=== PATIENT | male | born 1980 | race Caucasian/White ===

== ENCOUNTER 2018-05-12 21:57 | Emergency (ER) | payer OTHER ==
[2018-05-12] MEDS ORDERED: NA CHLORIDE 0.9% 1,000 ML ONE (22:45)
[2018-05-12] MEDS ORDERED: ONDANSETRON 4 MG/2 ML VIAL ONE (22:45)
[2018-05-12 23:04] LABS: Absolute Lymphocytes (CBC) 0.3 K/uL (0.7-4.9); Absolute Monocytes 0.8 K/uL (0.1-1.3); Absolute Neutrophil 11.4 K/uL (1.8-8.0); Basophils % 0.2 % (0-1.3); Eosinophils % 0.3 % (0-4.4); Hematocrit 53.3 % (39.6-49.0); Lymphocytes % 2.2 % (15.3-44.8); MPV 11.8 fL (7.6-11.3); Monocytes % 6.2 % (3.3-12.3); RBC Red Blood Cell Count 6.24 M/uL (4.33-5.43)
[2018-05-12 23:12] LABS: Albumin 5.3 g/dL (3.4-5.0); Bilirubin Direct 0.2 mg/dL (0-0.2); Bilirubin Total 0.9 mg/dL (0.2-1.0); Potassium 4.2 mmol/L (3.5-5.1); Protein, Total 9.2 g/dL (6.4-8.2)
[2018-05-12] MEDS ORDERED: MORPHINE 4 MG/ML SYR ONE (23:23)
[2018-05-12 23:33] LABS: Platelet Estimate ADEQ; Urine White Blood Cell Casts OK
[2018-05-12 23:34] LABS: Blood Morphology Comment NOT SEEN (NOT SEEN)
[2018-05-13] MEDS ORDERED: ONDANSETRON 4 MG/2 ML VIAL ONE (01:35)
[2018-05-13] MEDS ORDERED: NA CHLORIDE 0.9% 1,000 ML ONE ×2 (03:12→04:30)
[2018-05-13 05:56] LABS: Potassium 4.2 mmol/L (3.5-5.1)
--- NOTE | 2018-05-13 06:52 | EDPHYS ---
Physician Documentation [facility] Name: Chad Howe Age: 37 yrs Sex: Male : 1980 Arrival Date: 05/12/2018 Time: 22:02 Bed 16 Private MD: ED Physician Alek Vu HPI: 05/13 00:50 This 37 yrs old Male presents to ER via Ambulatory with complaints of tw4 Vomiting/Diarrhea, Pain all over. 00:50 The patient presents to the emergency department with nausea, vomiting. The patient tw4 presents to the emergency department with diarrhea, 10 times since the onset of symptoms. Onset: The symptoms/episode began/occurred today. Possible causes: unknown. The symptoms are aggravated by nothing. The symptoms are alleviated by nothing. Associated signs and symptoms: The patient has no apparent associated signs or symptoms. Severity of symptoms: At their worst the symptoms were mild in the emergency department the symptoms are unchanged. The patient has not experienced similar symptoms in the past. Historical: - Allergies: 05/12 22:38 No Known Allergies; bb - Home Meds: 22:38 Prilosec Oral [Active]; bb - PMHx: 22:38 GERD; bb - PSHx: 22:38 None; bb - Immunization history:: Adult Immunizations up to date. - Social history:: Smoking status: Patient/guardian denies using tobacco, Patient/guardian denies using alcohol, street drugs. - Ebola Screening: : No symptoms or risks identified at this time. ROS: 05/13 00:50 Constitutional: Negative for fever, chills, and weight loss, Eyes: Negative for injury, tw4 pain, redness, and discharge, Cardiovascular: Negative for chest pain, palpitations, and edema, Respiratory: Negative for shortness of breath, cough, wheezing, and pleuritic chest pain. MS/Extremity: Negative for injury and deformity, Skin: Negative for injury, rash, and discoloration. Abdomen/GI: Positive for nausea and vomiting, nausea, vomiting, and diarrhea, nausea, vomiting, diarrhea, Negative for abdominal pain, abdominal cramps, abdominal distension, black/tarry stool. Exam: 00:50 Constitutional: This is a well developed, well nourished patient who is awake, alert, tw4 and in no acute distress. Head/Face: Normocephalic, atraumatic. Chest/axilla: Normal chest wall appearance and motion. Nontender with no deformity. No lesions are appreciated. Cardiovascular: Regular rate and rhythm with a normal S1 and S2. No gallops, murmurs, or rubs. Normal PMI, no JVD. No pulse deficits. Respiratory: Lungs have equal breath sounds bilaterally, clear to auscultation and percussion. No rales, rhonchi or wheezes noted. No increased work of breathing, no retractions or nasal flaring. Back: No spinal tenderness. No costovertebral tenderness. Full range of motion. MS/ Extremity: Pulses equal, no cyanosis. Neurovascular intact. Full, normal range of motion. Neuro: Awake and alert, GCS 15, oriented to person, place, time, and situation. Cranial nerves II-XII grossly intact. Motor strength 5/5 in all extremities. Sensory grossly intact. Cerebellar exam normal. Normal gait. 00:50 Abdomen/GI: Inspection: abdomen appears normal, Bowel sounds: diminished, Palpation: moderate abdominal tenderness, in the right lower quadrant. Vital Signs: 05/12 22:38 BP 118 / 74; Pulse 80; Resp 18 S; Temp 97.6(A); Pulse Ox 98% on R/A; Weight 72.57 kg bb (R); Height 5 ft. 10 in. (177.80 cm) (R); Pain 9/10; 23:30 BP 116 / 86; Pulse 87; Resp 16; Pulse Ox 96% on R/A; jb4 05/13 00:30 BP 117 / 78; Pulse 92; Resp 16; Pulse Ox 94% on R/A; jb4 01:30 BP 116 / 78; Pulse 90; Resp 16; Pulse Ox 97% on R/A; jb4 02:30 BP 120 / 83; Pulse 84; Resp 16; Pulse Ox 94% on R/A; jb4 03:30 BP 111 / 79; Pulse 91; Resp 16; Pulse Ox 95% on R/A; jb4 04:30 BP 110 / 70; Pulse 84; Resp 16; Pulse Ox 96% on R/A; jb4 05:30 BP 112 / 73; Pulse 88; Resp 16; Pulse Ox 96% on R/A; jb4 06:00 BP 102 / 70; Pulse 86; Resp 16; Pulse Ox 94% on R/A; 4 07:00 BP 117 / 74; Pulse 83; Resp 16; Pulse Ox 97% on R/A; [facility] 05/12 22:38 Body Mass Index 22.96 (72.57 kg, 177.80 cm) bb MDM: 05/12 22:20 Patient medically screened. [facility] 05/12 22:41 Order name: Basic Metabolic Panel; Complete Time: 02:03 tw4 05/13 02:03 Interpretation: Normal except: CRE 1.54; GFR 51; GLUC 176. tw4 05/12 22:41 Order name: CBC with Diff; Complete Time: 02:03 4 05/13 02:03 Interpretation: Normal except: WBC 12.6; RBC 6.24; HCT 53.3; MPV 11.8. tw05/12 22:41 Order name: Creatinine for Radiology; Complete Time: 02:03 [facility] 05/13 02:03 Interpretation: Normal except: CRE 1.52; GFR 51. [facility] 05/12 22:41 Order name: Hepatic Function; Complete Time: 02:04 [facility] 05/13 02:04 Interpretation: Normal except: TP 9.2; ALB 5.3; GLOB 3.9. tw 05/12 22:41 Order name: Lipase [facility] 05/12 23:33 Order name: CBC Smear Scan; Complete Time: 02:04 [facility] 05/12 22:41 Order name: IV Saline Lock; Complete Time: 23:46 4 05/13 05:17 Order name: BMP [facility] 05/12 22:41 Order name: Labs collected and sent; Complete Time: 23:46 4 Administered Medications: 22:30 Drug: Zofran 4 mg Route: IVP; Site: left antecubital; jb4 23:00 Follow up: Response: No adverse reaction; Pain is decreased; Nausea is decreased jb4 22:30 Drug: NS 0.9% 1000 ml Route: IV; Rate: 1 bolus; Site: left antecubital; jb4 23:30 Follow up: Response: No adverse reaction; IV Status: Completed infusion; IV Intake: jb4 1000ml 05/13 01:32 Drug: Zofran 4 mg Route: IVP; Site: left antecubital; jb4 03:06 Follow up: Response: No adverse reaction; Pain is decreased; Nausea is decreased jb4 01:37 Not Given (Patient Refused): morphine 4 mg IVP once jb4 03:08 Drug: NS 0.9% 1000 ml Route: IV; Rate: 1 bolus; Site: left antecubital; jb4 03:50 Follow up: Response: No adverse reaction; IV Status: Completed infusion; IV Intake: jb4 1000ml 04:24 Drug: NS 0.9% 1000 ml Route: IV; Rate: 1 bolus; Site: left antecubital; jb4 Disposition: 05/13/18 06:52 Discharged to Home. Impression: Vomiting, unspecified, Diarrhea, unspecified, Dehydration. - Condition is Stable. - Discharge Instructions: Food Choices to Help Relieve Diarrhea, Adult, Dehydration, Adult, Diarrhea, Adult, Nausea and Vomiting, Adult. - Prescriptions for Lomotil 2.5- 0.025 mg Oral Tablet - take 2 tablet by ORAL route once daily As needed; 20 tablet. Zofran 4 mg/5 mL Oral Solution - take 2.5 milliliter by ORAL route every 6 hours As needed; 40 milliliter. - Medication Reconciliation Form, Thank You Letter, Antibiotic Education, Prescription Opioid Use form. - Follow up: Private Physician; When: Upon discharge from the Emergency Department; Reason: If symptoms return, Recheck today's complaints, Continuance of care. - Problem is new. - Symptoms have improved. Signatures: Dispatcher [employer] EDMS Natalee Hackett RN RN Nate Davey RN RN jb4 Alek Vu MD MD tw4 Corrections: (The following items were deleted from the chart) 07:15 06:52 05/13/2018 06:52 Discharged to Home. Impression: Vomiting, unspecified; Diarrhea, jb4 unspecified; Dehydration. Condition is Stable. Forms are Medication Reconciliation Form, Thank You Letter, Antibiotic Education, Prescription Opioid Use. Follow up: Private Physician; When: Upon discharge from the Emergency Department; Reason: If symptoms return, Recheck today's complaints, Continuance of care. Problem is new. Symptoms have improved. tw4
--- NOTE | 2018-05-13 06:52 | ER ---
Nurse's Notes [facility] Name: Chad Howe Age: 37 yrs Sex: Male : 1980 Arrival Date: 05/12/2018 Time: 22:02 Bed 16 Private MD: Diagnosis: Vomiting, unspecified;Diarrhea, unspecified;Dehydration Presentation: 05/12 22:35 Presenting complaint: Patient states: he is having vomiting, diarrhea, abdominal bb cramping which started today at approx 1730. Transition of care: patient was not received from another setting of care. Onset of symptoms was May 12, 2018. Risk Assessment: Do you want to hurt yourself or someone else? Patient reports no desire to harm self or others. Initial Sepsis Screen: Does the patient meet any 2 criteria? No. Patient's initial sepsis screen is negative. Does the patient have a suspected source of infection? No. Patient's initial sepsis screen is negative. Care prior to arrival: None. 22:35 Method Of Arrival: Ambulatory bb 22:35 Acuity: LESLEE 3 bb Historical: - Allergies: 22:38 No Known Allergies; bb - Home Meds: 22:38 Prilosec Oral [Active]; bb - PMHx: 22:38 GERD; bb - PSHx: 22:38 None; bb - Immunization history:: Adult Immunizations up to date. - Social history:: Smoking status: Patient/guardian denies using tobacco, Patient/guardian denies using alcohol, street drugs. - Ebola Screening: : No symptoms or risks identified at this time. Screenin:50 Abuse screen: Denies threats or abuse. Nutritional screening: No deficits noted. jb4 Tuberculosis screening: No symptoms or risk factors identified. Fall Risk None identified. Assessment: 22:40 General: Appears in no apparent distress. uncomfortable, Behavior is calm, cooperative, jb4 appropriate for age. Pain: Complains of pain in abdomen Pain does not radiate. Pain currently is 10 out of 10 on a pain scale. Quality of pain is described as crampy. Neuro: Level of Consciousness is awake, alert, obeys commands, Oriented to person, place, time, situation. Cardiovascular: Patient's skin is warm and dry. Respiratory: Airway is patent Respiratory effort is even, unlabored, Respiratory pattern is regular, symmetrical. GI: Abdomen is flat, non-distended. : No signs and/or symptoms were reported regarding the genitourinary system. EENT: No signs and/or symptoms were reported regarding the EENT system. Derm: Skin is intact, Skin is pink, warm \T\ dry. Musculoskeletal: Circulation, motion, and sensation intact. 23:40 Reassessment: Patient appears in no apparent distress at this time. Patient and/or jb4 family updated on plan of care and expected duration. Pain level reassessed. Patient is alert, oriented x 3, equal unlabored respirations, skin warm/dry/pink. Patient states feeling better. 05/13 01:18 Reassessment: Patient appears in no apparent distress at this time. Patient and/or jb4 family updated on plan of care and expected duration. Pain level reassessed. Patient is alert, oriented x 3, equal unlabored respirations, skin warm/dry/pink. PT reports increase nausea, provider notified see [facility] for orders. 02:00 Reassessment: Patient appears in no apparent distress at this time. Patient and/or jb4 family updated on plan of care and expected duration. Pain level reassessed. Patient is alert, oriented x 3, equal unlabored respirations, skin warm/dry/pink. 03:00 Reassessment: Patient appears in no apparent distress at this time. Patient and/or jb4 family updated on plan of care and expected duration. Pain level reassessed. Patient is alert, oriented x 3, equal unlabored respirations, skin warm/dry/pink. Patient states feeling better. 04:00 Reassessment: Patient appears in no apparent distress at this time. Patient and/or jb4 family updated on plan of care and expected duration. Pain level reassessed. Patient is alert, oriented x 3, equal unlabored respirations, skin warm/dry/pink. 04:59 Reassessment: Patient appears in no apparent distress at this time. Patient and/or jb4 family updated on plan of care and expected duration. Pain level reassessed. Patient is alert, oriented x 3, equal unlabored respirations, skin warm/dry/pink. 06:00 Reassessment: Patient appears in no apparent distress at this time. Pt is resting in jb4 bed, no S/s of pain or distress noted. is at the bedside. Respirations are even an unlabored. 07:00 Reassessment: Patient appears in no apparent distress at this time. Patient and/or jb4 family updated on plan of care and expected duration. Pain level reassessed. Patient is alert, oriented x 3, equal unlabored respirations, skin warm/dry/pink. Vital Signs: 05/12 22:38 BP 118 / 74; Pulse 80; Resp 18 S; Temp 97.6(A); Pulse Ox 98% on R/A; Weight 72.57 kg bb (R); Height 5 ft. 10 in. (177.80 cm) (R); Pain 9/10; 23:30 BP 116 / 86; Pulse 87; Resp 16; Pulse Ox 96% on R/A; jb4 05/13 00:30 BP 117 / 78; Pulse 92; Resp 16; Pulse Ox 94% on R/A; jb4 01:30 BP 116 / 78; Pulse 90; Resp 16; Pulse Ox 97% on R/A; jb4 02:30 BP 120 / 83; Pulse 84; Resp 16; Pulse Ox 94% on R/A; jb4 03:30 BP 111 / 79; Pulse 91; Resp 16; Pulse Ox 95% on R/A; jb4 04:30 BP 110 / 70; Pulse 84; Resp 16; Pulse Ox 96% on R/A; jb4 05:30 BP 112 / 73; Pulse 88; Resp 16; Pulse Ox 96% on R/A; jb4 06:00 BP 102 / 70; Pulse 86; Resp 16; Pulse Ox 94% on R/A; jb4 07:00 BP 117 / 74; Pulse 83; Resp 16; Pulse Ox 97% on R/A; jb4 05/12 22:38 Body Mass Index 22.96 (72.57 kg, 177.80 cm) ED Course: 05/12 22:02 Patient arrived in ED. es 22:20 Alek Vu MD is Attending Physician. tw4 22:37 Triage completed. bb 22:38 Arm band placed on Patient placed in an exam room, on a stretcher, on pulse oximetry. bb Family accompanied patient. 22:48 Nate Mccracken, RN is Primary Nurse. jb4 22:50 Patient has correct armband on for positive identification. Placed in gown. Bed in low jb4 position. Call light in reach. Side rails up X 1. Pulse ox on. NIBP on. 05/13 07:14 No provider procedures requiring assistance completed. IV discontinued, intact, jb4 bleeding controlled. Administered Medications: 05/12 22:30 Drug: Zofran 4 mg Route: IVP; Site: left antecubital; jb4 23:00 Follow up: Response: No adverse reaction; Pain is decreased; Nausea is decreased jb4 22:30 Drug: NS 0.9% 1000 ml Route: IV; Rate: 1 bolus; Site: left antecubital; jb4 23:30 Follow up: Response: No adverse reaction; IV Status: Completed infusion; IV Intake: jb4 1000ml 05/13 01:32 Drug: Zofran 4 mg Route: IVP; Site: left antecubital; jb4 03:06 Follow up: Response: No adverse reaction; Pain is decreased; Nausea is decreased jb4 01:37 Not Given (Patient Refused): morphine 4 mg IVP once jb4 03:08 Drug: NS 0.9% 1000 ml Route: IV; Rate: 1 bolus; Site: left antecubital; jb4 03:50 Follow up: Response: No adverse reaction; IV Status: Completed infusion; IV Intake: jb4 1000ml 04:24 Drug: NS 0.9% 1000 ml Route: IV; Rate: 1 bolus; Site: left antecubital; jb4 Intake: 05/12 23:30 IV: 1000ml; Total: 1000ml. jb4 05/13 03:50 IV: 1000ml; Total: 2000ml. jb4 Outcome: 06:52 Discharge ordered by . tw4 07:14 Discharged to home ambulatory, with family. jb4 07:14 Condition: stable 07:14 Discharge instructions given to patient, family, Instructed on discharge instructions, follow up and referral plans. medication usage, Demonstrated understanding of instructions, follow-up care, medications, Prescriptions given X 2. 07:15 Patient left the ED. jb4 Signatures: Laly Fajardo Brenda, RN RN Nate Davey RN RN jb4 Alek Vu MD MD tw4
== END 2018-05-13 07:15 | disposition home or self-care (01) ==
LOC: ER 21:57
DX: E86.0 Dehydration (principal); K21.9 Gastro-esophageal reflux disease without esophagitis
CPT/HCPCS: 36415; 80048; 80076; 83690; 85025; 96361; 96374; 99283; J2405; J7030